=== PATIENT | female | born 1950 | race Caucasian/White ===

== ENCOUNTER 2016-09-21 06:29 | Inpatient (IN) | payer MEDICARE ==
[~2016-09-21] VITALS: Ht 165.1 cm; Wt 54.4 kg
--- NOTE | ~2016-09-21 | HP ---
PATIENT: JOHNNIE HUSSEIN MEDICAL RECORD: [id number] ACCOUNT: [id number] LOCATION:D.[id number] : 54 ADMISSION DATE: 09/21/16 HISTORY AND PHYSICAL EXAMINATION Admission History and Physical DATE OF ADMISSION: 09/21/2016 CHIEF COMPLAINT: Abnormal labs. HISTORY OF PRESENT ILLNESS: This is a 66-year-old white female from a local retirement with a history of Alzheimer dementia with behavioral disturbance, as well as hypertension, pressure ulcers and bowel and bladder incontinence. She was brought because of abnormal blood work showing a BUN and creatinine of 77 and 1.8. On August 26, her BUN and creatinine was 14 and 0.8 respectively. It was felt that she might be dehydrated and the chest x-ray suggested early pneumonia. She is admitted. PAST MEDICAL AND SURGICAL HISTORY: Alzheimer dementia with behavior disturbance, hypertension, pressure ulcers and incontinence. PAST SURGICAL HISTORY: Unknown. DRUG ALLERGIES: Unknown. CURRENT MEDICATIONS: Aricept 10 mg once a day, Zyprexa 5 mg twice a day, Depakote 250 mg twice a day, Promod liquid protein 30 mL p.o. daily, Debrox into each ear twice a day and vitamin C 500 mg daily. ALLERGIES: None known. SOCIAL HISTORY: She is . Obviously not working with her diagnosis and the fact that she is in a retirement. FAMILY HISTORY: Unknown. HABITS: Unknown. REVIEW OF SYSTEMS: Unobtainable. PHYSICAL EXAMINATION: VITAL SIGNS: Temperature 97.6, pulse 117, respirations 18 and blood pressure 142/111. GENERAL: She is lying on her right side, curled up. She will not open her eyes to speak and when she did try to speak, she was basically incoherent, but wanted me out of the room. HEENT: Unremarkable NECK: Supple. HEART: Tachycardia. LUNGS: Fairly clear. ABDOMEN: Soft. EXTREMITIES: No edema. NEUROLOGIC: Unobtainable in this patient with dementia. HISTORY AND PHYSICAL [id number] JOHNNIE HUSSEIN LABORATORY WORK: CBC showed a white count of 17,000, hemoglobin 16.2 and hematocrit 50.3. Basic metabolic panel is all okay except BUN 77, creatinine 1.8. AST minimally elevated at 50, alkaline phosphatase minimally elevated at 165. The rest of liver enzymes were all okay. DIAGNOSTIC DATA: Chest x-ray is suggestive of early pneumonia. ASSESSMENT: 1. Pneumonia. 2. Dehydration. 3. Alzheimer dementia with behavioral disturbance. PLAN: IV fluids, IV antibiotics. Other tests and procedures as warranted. TRANSINT:[id number] Voice Confirmation ID: [id number] DOCUMENT ID: [id number] CHRISTIANNE RIVAS MD CC: [id number] DICTATION DATE: 09/24/16 1304 TUB ATTENDANT: 09/24/16 1636 DIS IN 09/24/16 [place] [id number] [place] [id number]
[2016-09-21 07:35] LABS: APPEARANCE HAZY (CLEAR); COLOR YELLOW (YELLOW)
[2016-09-21 07:36] LABS: BILIRUBIN NEGATIVE (NEGATIVE); GLUCOSE NEGATIVE (NEGATIVE); KETONE NEGATIVE (NEGATIVE); LEUKOCYTE ESTERASE NEGATIVE (NEGATIVE); NITRITE NEGATIVE (NEGATIVE); PROTEIN NEGATIVE (NEGATIVE); UROBILINOGEN NORMAL (NORMAL)
[2016-09-21 07:36] LABS: ALBUMIN 2.4 g/dL (3.4-5.0); ALKALINE PHOSPHATASE 159 U/L (46-116); ALT (SGPT) 40 U/L (10-68); BILIRUBIN - TOTAL 0.61 mg/dL (0.2-1.3); CALC OSMOLALITY 312 mosm/kg (275-300); CALCIUM 9.2 mg/dL (8.5-10.1); CARBON DIOXIDE 30.4 mmol/L (21.0-32.0); CHLORIDE - SERUM 104 mmol/L (98-107); CREATININE - SERUM 1.7 mg/dL (0.6-1.3); GLUCOSE 117 mg/dL (74-106); POTASSIUM - SERUM 4.5 mmol/L (3.5-5.1); PROTEIN - SERUM 8.5 g/dL (6.4-8.2); SODIUM 145 mmol/L (136-145); UREA NITROGEN 76 mg/dL (7-18); eGFR NON AFRICAN AMERICAN 32 mL/min (90-120)
[2016-09-21 07:43] LABS: AMYLASE - SERUM 84 U/L (25-115); CREATINE KINASE 169 UL (21-215); LIPASE 346 U/L (73-393); PRO BNP 680 pg/mL (0-125); TROPONIN-I < 0.017 ng/mL (0.000-0.060)
[2016-09-21 07:55] LABS: BASOPHILS 0.2 % (0.0-2.0); EOSINOPHILS 0.3 % (0-7); HEMATOCRIT 49.9 % (36.0-48.0); HEMOGLOBIN 15.8 g/dL (12-16); IMMATURE GRANULOCYTES 0.5 % (0-5); LYMPHOCYTES 17.9 % (15-50); MCH 29.6 pg (26.0-34.0); MCHC 31.7 g/dL (31.0-37.0); MCV 93.6 fL (80.0-100.0); MEAN PLATELET VOLUME 11.2 fL (7.4-10.4); MONOCYTES 9.6 % (2-11); NEUTROPHILS 71.5 % (40-80); PLATELET COUNT 319 10x3/uL (130-400); RBC 5.33 10x6/uL (4.00-5.40); RDW 14.8 % (11.5-14.5); WBC 15.8 10x3/uL (4.8-10.8)
--- NOTE | 2016-09-21 10:30 | NUR ---
PATIENT TO ROOM AT THIS TIME. ASSESSMENT COMPLETE, VS STABLE. IV INTACT X 2. DRESSING TO RIGHT WRIST PULLED BACK AND REINFORCED. UNDER DRESSING IS SCABS AND SORES. LEFT HEEL DRESSING CHANGED AT THIS TIME. SKIN SLOUGHED OFF HEEL AND PURELENT DRAINAGE NOTED. RIGHT HEEL RED AND BLANCHABLE. HEEL PROTECTOR ON. BUTTOCKS RED AND BLANCHABLE. PATIENT CURSING AND MAD. UPSET THAT SHE IS BEING MESSED WITH. EXPLAINED TO PATIENT NEEDED TO BE DONE TO ASSESS HER. PATIENT TOO CONFUSED TO UNDERSTAND. WILL CONTINUE TO MONITOR AT THIS TIME. CALL LIGHT WITHIN REACH. BA ON
[2016-09-21 13:31] VITALS: BP 116/90
--- NOTE | 2016-09-21 15:00 | NUR ---
PATIENT IN BED WITH IV INTACT. NO COMPLAINTS AT THIS TIME. EYES CLOSED RESTING QUIETLY WITH CALL LIGHT WITHIN REACH. BA ON.
[2016-09-21 17:19] VITALS: BP 139/80
[2016-09-21] MEDS ORDERED: ZYPREXA ZYDI5 MG/TAB PO (18:46)
[2016-09-21] MEDS ORDERED: DEPAKENE 2250 MG/5 M PO (18:47)
[2016-09-21] MEDS ORDERED: ASCORBIC ACID500 MG PO (18:48)
[2016-09-21] MEDS ORDERED: ARICEPT10 MG PO (18:49)
[2016-09-21] MEDS ORDERED: DEBROX OTIC15 ML EACH EAR (18:50)
[2016-09-21] MEDS ORDERED: PROMOD LIQUID P30 M1 PO (18:50)
--- NOTE | 2016-09-21 18:50 | NUR ---
PATIENT IN BED WITH IV INTACT. NO COMPLAINTS OR SIGNS OF DISTRESS. CALL IGHT WITHIN REACH. BED ALARM ON.
--- NOTE | 2016-09-21 19:00 | NUR ---
BEDSIDE REPORT RECEIVED AND CARE OF PT ASSUMED. PT LYING IN SUPINE POSITION, CONFUSED AND CURSING. IV IN LEFT FA PATENT WITH NS INFUSING AT 125 ML / HR. PLACED TELEMETRY ON PT PER ORDER. WILL MONITOR CLOSELY FOR NEEDS.
[2016-09-21 21:35] VITALS: BP 119/75
--- NOTE | 2016-09-21 21:53 | NUR ---
HS MEDICATIONS GIVEN...PT TOOK PILLS WHOLE WITH WATER. WILL CONTINUE TO MONITOR FOR NEEDS. BED ALARM IN USE. SIDE RAILS UP X3 FOR SAFETY.
--- NOTE | 2016-09-22 07:53 | NUR ---
PATIENT IS RESTING QUIETLY WITH EYES CLOSED. NO SIGNS OF DISTRESS NOTED. BED RAILS UP X'S 2. BED ALARM ON. BED IN LOWEST POSITION. DOOR OPEN.
[2016-09-22 08:41] VITALS: BP 120/73
[2016-09-22 11:42] VITALS: BP 102/64
[2016-09-22 15:04] VITALS: Ht 165.1 cm; Wt 54.4 kg
--- NOTE | 2016-09-22 15:26 | NUR ---
WOUND CARE CONSULT: PT HAS A WOUND ON HER LEFT HEEL THAT APPEARS A STAGE 3 PRESSURE INJURY. TOP OF LEFT FOOT AND LATERAL SIDE IS RED (NON-BLANCHABLE) RIGHT WRIST HAS SKIN TEAR LEFT ELBOW HAS OPEN AREA WITH YELLOW WOUND BED. PT REFUSES TO ALLOW COMPLETE ASSESSMENT OF THESE AREAS SO DRY/NON-ADHERENT DRESSINGS WERE APPLIED TO PROTECT THEM UNTIL FURTHER ASSESSMENT CAN BE DONE. WOUND CARE WILL CONTINUE TO MONITOR
[2016-09-22 15:34] VITALS: BP 112/75
--- NOTE | 2016-09-22 15:38 | NUR ---
Patient Name: JOHNNIE HUSSEIN Admission Status: ER Accout number: [id number] Admission Date: 09-21-2016 : 1950 Admission Diagnosis: Attending: XENA Current LOS: 1 Anticipated DC Date: 09-26-2016 Planned Disposition: Nursing Facility [facility] Cert Primary Insurance: MEDICARE A & B Discharge Planning Comments: CM CALLED PATIENTS SPOUSE REGARDING PLANS AND NEEDS FOR DISCHARGE. PATIENT IS A RESIDENT AT [facility]. PATIENTS PCP IS DR. Margaret ROSALES AT [facility] HOUSE PHARMACY. PATIENT WILL RETURN THERE UPON DISCHARGE. CM WILL CONTINUE TO FOLLOW PATIENT WITH D/C NEEDS AND PLANS. PCP DR. Margaret ROSALES [facility] JESUSITA HUSSEIN [phone] Medicaid Biller: Yolanda Schwartz Is the patient Alert and Oriented? No 0 * How many steps to enter\exit or inside your home? 0 0 * PCP DR. Margaret ROSALES 0 * Pharmacy IN HOUSE AT [facility] 0 * Preadmission Environment Penitentiary Detention 0 * Facility Name [facility] 0 * ADLs Total Dependent 0 * Other Equipment USES WHEELCHAIR AT FACILITY 0 * Community resources currently utilized None 0 * Additional services required to return to the preadmission environment? Yes 0 * Can the patient safely return to the preadmission environment? Yes 0 * Has this patient been hospitalized within the prior 30 days at any hospital? No 0 Grand Total: 0
--- NOTE | 2016-09-22 20:07 | NUR ---
TRIED TO PUT SCDS ON PATIENT, SHE STATED "GET AWAY FROM ME! DO NOT TOUCH MY LEGS!" PATIENT KICKED HER LEGS. TRIED TO TALK TO PATIENT TO EXPLAIN. PATIENT STATED "WE DO NOT WANT YOU IN OUR HOUSE BRANDEN! GET OUT OF HERE!" PATIENT VERY CONFUSED. UNABLE TO EDUCATE.
[2016-09-22 21:54] VITALS: BP 109/73
--- NOTE | 2016-09-23 00:09 | NUR ---
ASSESSED AT THE BEGINNING OF THE SHIFT. PT IS ALERT AND CONFUSED, TALKING TO HERSELF AND PEOPLE SHE THINKS ARE IN THE ROOM. SHE HAS TELEMETRY IN PLACE AND SOME SKIN TEARS TO HER ARMS AND LEFT FOOT. CONTRACTIONS ARE NOTED. FOR BEDTIME MEDS THEY WERE CRUXHED AND GIVEN WITH CHOCOLATE PUDDING WHICH SHE TOOK WELL. THERE IS AN ALARM IN PLCE AND THE BED IS LOW, RAILS UP X'S 2 WITH THE CALL LIGHT AT HAND.
[2016-09-23 06:12] LABS: BASOPHILS 0.3 % (0.0-2.0); EOSINOPHILS 1.6 % (0-7); IMMATURE GRANULOCYTES 1.1 % (0-5); MCH 29.2 pg (26.0-34.0); MCHC 31.5 g/dL (31.0-37.0); MCV 92.9 fL (80.0-100.0); MEAN PLATELET VOLUME 10.7 fL (7.4-10.4); MONOCYTES 10.7 % (2-11); NEUTROPHILS 64.3 % (40-80); RDW 14.6 % (11.5-14.5)
[2016-09-23 06:22] LABS: HEMATOCRIT 39.1 % (36.0-48.0); HEMOGLOBIN 12.3 g/dL (12-16); PLATELET COUNT 210 10x3/uL (130-400); RBC 4.21 10x6/uL (4.00-5.40); WBC 7.4 10x3/uL (4.8-10.8)
[2016-09-23 06:35] LABS: BILIRUBIN - TOTAL 0.3 mg/dL (0.2-1.3); CALCIUM 7.9 mg/dL (8.5-10.1)
[2016-09-23 06:36] LABS: ALBUMIN 1.6 g/dL (3.4-5.0); ANION GAP 9.3 mmol/L (8-16); POTASSIUM - SERUM 3.3 mmol/L (3.5-5.1); PROTEIN - SERUM 6.3 g/dL (6.4-8.2)
--- NOTE | 2016-09-23 08:55 | NUR ---
AWAKE AND ALERT. ORIENTED TO SELF ONLY. ATTEMPTS TO REORIENT WITHOUT SUCCESS. IS TALKING TO PEOPLE WHEN THERE IS NO ONE IN THE ROOM. LUNGS ARE CLEAR BILATERALLY, NO COUGH NOTED. SKIN IS INTACT WITHOUT REDNESS EXCEPT WOUNDS TO LEFT FOOT AND HEEL WHICH HAVE DRESSINGS IN PLACE. IV TO LEFT HAND IS PATNET WITHOUT REDNESS AT INSERTION SITE. INCONTINENT OF URINE AT THIS TIME. SKIN CARE PER STAFF. LINENS CHANGED.
--- NOTE | 2016-09-23 09:30 | NUR ---
STAFF ATTEMPTED TO ASSIST WITH BREAKFAST. PATIENT SPAT EGGS AT STAFF.
--- NOTE | 2016-09-23 10:30 | NUR ---
DRESSING TO LEFT HEEL CHANGED PER STAFF. INCONTINENT OF URINE . SKIN CARE PER STAFF. LINENS CHANGED. IV AND SL TO LEFT ARM ARE BOTH LEAKING, D/C WITH CATHETER INTACT. RESITED TO RIGHT FOREARM AFTER ONE ATTEMPT WITH 22G.
--- NOTE | 2016-09-23 18:44 | NUR ---
RESTING WITH EYES CLOSED. REFUSED TO EVEN TRY SUPPER TRAY. LEFT AT BEDSIDE. NO CHANGES NOTED. NO NEEDS NOTED.
[2016-09-23 23:00] VITALS: BP 120/57
--- NOTE | 2016-09-23 23:20 | NUR ---
PT IS CONFUSED AND SOME TIMES ACTS OUT CALLING BAD NAMES TO THE STAFF AND ACTING LIKE THERE IS OTHER PEOPLE IN THE ROOM THAT SHE IS TALKING TOO. SHE IS ICNONT OF URINE.NEEDS ASSISTING WITH TURNING AND IS A TWO PERSON CLEAN UP DUE TO THE COMBATIVE NATURE OF PATIENT. ALL MEDS WERE TAKE CRUSHED IN CHOCOLATE PUDDING AND SHE IS REFUSING TO KEEP HER TELEMETRY IN PLACE. SHE HAS A BED ALARM IN PLACE AND THE BED IS LOW, RAILS UP X'S 2 WITH THE CALL LIGHT AT HAND. ALL DRESSINGS TO ABRASIONS ARE INTACT AND SECURE.
[2016-09-24 04:00] VITALS: BP 137/82
[2016-09-24 08:57] VITALS: BP 141/86
--- NOTE | 2016-09-24 09:30 | NUR ---
TOOK AM MEDS CRUSHED IN PUDDING. INCONTINENT OF URINE. SKIN CARE PER STAFF.
[2016-09-24 12:24] VITALS: BP 64/34
--- NOTE | 2016-09-24 12:30 | NUR ---
STAFF ATTEMPTED TO FEED PATIENT. ONLY A FEW BITES EATEN.
[2016-09-24] MEDS ORDERED: LEVAQUIN750 MG PO (13:13)
--- NOTE | 2016-09-24 13:33 | NUR ---
SPOKE WITH TO NOTIFY OF PENDING RETURN TO [facility].
--- NOTE | 2016-09-24 13:41 | NUR ---
CALL TO [facility] [place] AND SPOKE WITH ROSIBEL. ROSIBEL STATED THAT THEY CAN ACCEPT PATIENT BACK TODAY AND WILL PROVIDE WHEELCHAIR VAN FOR TRANSPORT. REPORT TO BE CALLED TO ROSIBEL BY FREDDIE CULVER. PRESCRIPTION FOR [facility] TO ACCOMPANY PATIENT AT DISCHARGE.
--- NOTE | 2016-09-24 13:45 | NUR ---
REPORT CALLED TO ROSIBEL MCCULLOUGH LPN AT [facility]. ALL QUESTIONS ANSWERED.
--- NOTE | 2016-09-24 14:00 | NUR ---
DISCHARGED TO [facility] VIA THEIR TRANSPORTATIONS. IV TO RIGHT FOREARM D/C WITH CATHETER INTACT. WAS INCONTINENT OF URINE. SKIN CARE PER STAFF. DRESSING TO LEFT HEEL CHANGED PRIOR TO D/C.
--- NOTE | 2016-09-26 10:58 | NUR ---
09/26/2016 10:18 DCP: Discharge Planning Patient discharged 09/24 to a assistant terminal manager care bed at [facility].
== END 2016-09-24 14:00 | DRG 193 ==
LOC: D.ER 06:29 → D.MS 09:24 → D.SDCHOLD 12:17 → D.MS 12:19
PROVIDERS: Emergency Medicine; Family Medicine; ADMIT Family Medicine
DX: J18.9 Pneumonia, unspecified organism (principal); L89.023 Pressure ulcer of left elbow, stage 3; L89.893 Pressure ulcer of other site, stage 3; N17.9 Acute kidney failure, unspecified; F02.81 Dementia in other diseases classified elsewhere, unspecified severity, with behavioral disturbance; E86.0 Dehydration; G30.9 Alzheimer's disease, unspecified; R15.9 Full incontinence of feces; R32 Unspecified urinary incontinence; L89.622 Pressure ulcer of left heel, stage 2